=== PATIENT | female | born 1965 | race Caucasian/White ===

== ENCOUNTER 2017-01-11 09:22 | Outpatient (CLI) | payer OTHER ==
--- NOTE | 2017-01-11 14:17 | MRI Report ---
EXAM: LEFT HIP MRI WITHOUT CONTRAST EXAM DATE: 01/11/2017 11:00 AM. CLINICAL HISTORY: Left hip pain for 6 months. COMPARISON: None. TECHNIQUE: Multiplanar, multisequence T1-weighted and fluid-sensitive, small dtmne-il-odow sequences of the hip and large qezuu-fj-yhvz sequences of the pelvis without contrast. Other: None. FINDINGS: Bones: No fractures or subluxations. No marrow edema. Left Hip: No acetabular retroversion. Femoral head/neck offset is within normal limits. No effusion o r loose bodies. The articular cartilage is intact. The labrum is unremarkable on this nonarthrographi c study. The ligamentum teres is intact. Other Joints: The visualized lumbar spine, sacroiliac joints, symphysis pubis, and contralateral hip are unremarkable. Musculature: No edema or fatty atrophy. Minimal bilateral gluteus medius tendinosis is present. The visualized hamstring tendons are normal. The ischiofemoral space is normal. Pelvic Cavity: The visualized viscera are unremarkable. No lymphadenopathy. No free fluid in the pelv is. Other: The visualized sciatic nerves are unremarkable. No bursitis. The subcutaneous tissues are unre markable. IMPRESSION: Minimal bilateral gluteus medius tendinosis. [facility]CUL[facility] SECTION Referring Provider Line: [phone] SITE ID: [id number]
== END 2017-01-11 09:23 | disposition home or self-care (01) ==
LOC: DI 09:22
PROVIDERS: ATTEND Physician Assistant
DX: M67.952 Unspecified disorder of synovium and tendon, left thigh (principal); M67.951 Unspecified disorder of synovium and tendon, right thigh

== ENCOUNTER 2017-05-24 19:56 | Emergency (ER) | payer OTHER ==
--- NOTE | 2017-05-24 20:38 | XRAY Preliminary Report ---
Exam: XR FOOT 3 VIEW RT IMPRESSION: No evidence of fracture or dislocation. [facility] SITE ID: [id number]
--- NOTE | 2017-05-24 20:40 | XRAY Report ---
EXAM: RIGHT FOOT RADIOGRAPHY EXAM DATE: 05/24/2017 08:19 PM. CLINICAL HISTORY: Trauma. COMPARISON: None. TECHNIQUE: 3 views. FINDINGS: Bones: No fracture or focal bony lesion. There are calcaneal enthesophytes. Joints: No evidence of dislocation. Soft Tissues: No unexpected soft tissue findings. IMPRESSION: No evidence of fracture or dislocation. [facility] Referring Provider Line: [phone] SITE ID: [id number]
[2017-05-24] MEDS ORDERED: TRIAMCINOLONE 40 MG/ML VIAL IM STA (22:11)
[2017-05-24] MEDS ORDERED: BUPIVACAINE 0.5%-EPI 1:200000 PF 10 ML VIAL SUBQ STA (22:11)
[2017-05-24] MEDS ORDERED: diazePAM 5 MG TABLET PO STA (22:11)
[2017-05-24] MEDS ORDERED: KETOROLAC 60 MG/2 ML VIAL IM STA (22:11)
[2017-05-24] MEDS ORDERED: diazePAM 5 MG TABLET PO ONE (22:24)
[2017-05-24] MEDS ORDERED: TRIAMCINOLONE 40 MG/ML VIAL ONE (22:24)
[2017-05-24] MEDS ORDERED: KETOROLAC 60 MG/2 ML VIAL ONE (22:24)
[2017-05-24] MEDS ORDERED: BUPIVACAINE 0.5% PF 30 ML VIAL ONE (22:25)
--- NOTE | 2017-05-24 22:38 | ED Physician Documentation ---
PD HPI LOWER EXT INJURY - Stated complaint Stated Complaint: FOOT/BACK PX - Chief complaint Chief Complaint: Ext Problem - History obtained from History obtained from: Patient - History of Present Illness PD HPI LOW EXT INJURY LOCATION: Other (lower back hurting the past few days too. ) Type of injury: Twist (twisted foot as fell on curb. Not hurting too much at the time, but limping some. 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 : None HEENT: Other Psych: None Musculoskeletal: Chronic back pain, Other Derm: None - Past Surgical History Past Surgical History: Yes Ortho: Arthroscopic surgery /HELMET HAT PUNCHER: Tubal ligation HEENT: Tonsil/Adenoidectomy - Present Medications Home Medications: Ambulatory Orders Medication Instructions Recorded Confirmed Oxycodone HCl/Acetaminophen 1 mg PO TID PRN 01/19/14 05/24/17 [Percocet 10-325 mg Tablet] Aspirin [Aspir-Low] 81 mg PO DAILY 10/19/15 05/24/17 Gabapentin 300 mg PO DAILY 10/19/15 05/24/17 Metformin HCl 1,000 mg PO DAILY 10/19/15 05/24/17 Methocarbamol [Robaxin-750] 750 mg PO QID PRN #30 tablet 10/19/15 05/24/17 Lisinopril 10 mg PO 05/24/17 diazePAM [Diazepam] 5 mg PO TID PRN #20 tablet 05/24/17 - Allergies Allergies/Adverse Reactions: Allergies Allergy/AdvReac Type Severity Reaction Status Date / Time Penicillins Allergy Severe Rash Verified 05/24/17 20:03 adhesive AdvReac Rash Verified 05/24/17 20:03 - Social History Does the pt smoke?: Yes Smoking Status: Current every day smoker Does the pt drink ETOH?: No Does the pt have substance abuse?: No - Immunizations Immunizations are current?: Yes - POLST Patient has POLST: No PD ED PE NORMAL - Vitals Vital signs reviewed: Yes - General General: Alert and oriented X 3, Well developed/nourished, Other (pain in muscle left lower with ROM and palpation) - HEENT HEENT: Moist mucous membranes, Pharynx benign - Cardiac Cardiac: RRR, No murmur - Respiratory Respiratory: Clear bilaterally - Abdomen Abdomen: Soft, Non tender - Back Back: No CVA TTP, No spinal TTP, Other (tender left iliac creast area focally in muscle. No rash nor sores. ) - Derm Derm: Normal color, Warm and dry, No rash - Extremities Extremities: No tenderness to palpate, No edema, No calf tenderness / cord, Other (right ankle and top of switch tender to palpation laterally without deformity.) - Neuro Neuro: No motor deficit, No sensory deficit Results - Vitals Vitals: Oxygen O2 Source Room air PD MEDICAL DECISION MAKING - ED course Complexity details: reviewed results, considered differential (ankle sprain and likely has back pain now from irregular gait. Seems muscular in iliac crest area. Trigger point injection done at point of most tenderness. ), d/w patient Departure - Departure Disposition: 01 Home, Self Care Clinical Impression: Ankle sprain Qualifiers: Encounter type: initial encounter Involved ligament of ankle: other ligament Laterality: right Qualified Code(s): S93.491A - Sprain of other ligament of right ankle, initial encounter Low back strain Qualifiers: Encounter type: initial encounter Qualified Code(s): S39.012A - Strain of muscle, fascia and tendon of lower back, initial encounter Condition: Stable Record reviewed to determine appropriate education?: Yes Instructions: Lumbosacral Strain, ED Sprain Ankle W X Ray Follow-Up: LISANDRA JOHN MD [Primary Care Provider] - Prescriptions: diazePAM [Diazepam] 5 mg PO TID PRN #20 tablet PRN Reason: Spasms Comments: Use the walking cast boot to support the ankle and foot ligaments and muscles and reduce the pain and promote healing. You do not have to have it on when rested. Continue usual medications. He can use diazepam as a stronger muscle relaxant if needed for spasms. Hopefully there will be some improvement in the low back with the local injection as well. Continue usual pain medications. Follow-up with your primary care next week if not improved. The ankle may take even 2 or 3 weeks to fully heal up. Discharge Date/Time: 05/24/17 23:10
[2017-05-24 23:05] VITALS: BP 118/77
== END 2017-05-24 23:10 | disposition home or self-care (01) ==
LOC: ED 19:56
DX: S93.491A Sprain of other ligament of right ankle, initial encounter (principal); S39.012A Strain of muscle, fascia and tendon of lower back, initial encounter; W10.1XXA Fall (on)(from) sidewalk curb, initial encounter; X50.1XXA Overexertion from prolonged static or awkward postures, initial encounter; F17.200 Nicotine dependence, unspecified, uncomplicated
CPT/HCPCS: 20552; 73630; 96372; 99283; A9270

== ENCOUNTER 2017-07-02 11:06 | Emergency (ER) | payer OTHER ==
[2017-07-02 13:20] LABS: BASOPHILS % (AUTO) 0.9 %; HGB - HEMOGLOBIN 14.3 g/dL (12.0-16.0); LYMPHOCYTES % (AUTO) 23.8 %; MEAN CORPUSCULAR HEMOGLOBIN 29.6 pg (27.0-31.0); MEAN CORPUSCULAR HGB CONC 33.6 g/dL (32.0-36.0); MEAN CORPUSCULAR VOLUME 88.2 fL (81.0-99.0); MEAN PLATELET VOLUME 9.5 fL (7.9-10.8); MONOCYTES # (AUTO) 0.7 10^3/uL (0.0-1.0); MONOCYTES % (AUTO) 18.2 %; NEUTROPHILS # (AUTO) 2.3 10^3/uL (1.5-6.6); NEUTROPHILS % (AUTO) 57.1 %; PLT - PLATELET COUNT 132 10^3/uL (130-450); RED BLOOD COUNT 4.82 10^6/uL (4.20-5.40); RED CELL DISTRIBUTION WIDTH 14.8 % (12.0-15.0); WHITE BLOOD COUNT 4.1 x10^3/uL (4.8-10.8)
[2017-07-02 13:32] LABS: ALBUMIN 4.4 g/dL (3.2-5.5); ALBUMIN/GLOBULIN RATIO 1.4 (1.0-2.2); BILIRUBIN,TOTAL 0.3 mg/dL (0.2-1.0); CALCIUM 9.2 mg/dL (8.5-10.3); CREATININE 0.9 mg/dL (0.4-1.0); TOTAL PROTEIN 7.5 g/dL (6.7-8.2)
[2017-07-02] MEDS ORDERED: ONDANSETRON 4 MG/2 ML VIAL IVP STA (13:51)
[2017-07-02] MEDS ORDERED: SODIUM CHLORIDE 0.9% 1,000 ML IV ONE (13:51)
[2017-07-02] MEDS ORDERED: oxyCOD/ACETAMIN 5 MG/325 MG TABLET PO STA (13:51)
[2017-07-02] MEDS ORDERED: GABAPENTIN 100 MG CAPSULE PO STA (13:52)
[2017-07-02] MEDS ORDERED: METHOCARBAMOL 500 MG TABLET PO STA (13:52)
--- NOTE | 2017-07-02 13:52 | ED Physician Documentation ---
History of Present Illness - Stated complaint Stated Complaint: VOMITING,FEVER - Chief complaint Chief Complaint: Fever - History obtained from History obtained from: Patient, Family - History of Present Illness Timing: How many days ago (3) Pain level max: 7 Pain level now: 7 Quality: aching, dull Improved by: rest Worsened by: eating - Additonal information Additional information: Patient is a 52-year-old female who states she has been sick for the past 3 days. Coughing, body aches congestion. Also has had nausea vomiting diarrhea. Unable to keep her medications down at home. She is normally on Percocet, gabapentin and Robaxin. She is not having any abdominal pain. Has not taken anything for the vomiting. Review of Systems Ten Systems: 10 systems reviewed and negative Constitutional: reports: Fever, Chills, Myalgias Nose: reports: Rhinorrhea / runny nose, Congestion Throat: denies: Sore throat Respiratory: reports: Cough GI: reports: Nausea, Vomiting, Diarrhea. denies: Hematemesis, Bloody / black stool Skin: denies: Rash Musculoskeletal: denies: Neck pain, Back pain Neurologic: denies: Focal weakness, Numbness, Headache PD PAST MEDICAL HISTORY - Past Medical History Past Medical History: Yes Cardiovascular: None Respiratory: Sleep apnea, CPAP use Neuro: None Endocrine/Autoimmune: None GI: None ADMISSIONS NURSE: None : None HEENT: Other Psych: None Musculoskeletal: Chronic back pain, Other Derm: None - Past Surgical History Past Surgical History: Yes Ortho: Arthroscopic surgery /ADMISSIONS NURSE: Tubal ligation HEENT: Tonsil/Adenoidectomy - Present Medications Home Medications: Ambulatory Orders Medication Instructions Recorded Confirmed Oxycodone HCl/Acetaminophen 1 mg PO TID PRN 01/19/14 07/02/17 [Percocet 10-325 mg Tablet] Aspirin [Aspir-Low] 81 mg PO DAILY 10/19/15 07/02/17 Gabapentin 300 mg PO DAILY 10/19/15 07/02/17 Metformin HCl 1,000 mg PO DAILY 10/19/15 07/02/17 Methocarbamol [Robaxin-750] 750 mg PO QID PRN #30 tablet 10/19/15 07/02/17 Lisinopril 10 mg PO DAILY 05/24/17 07/02/17 diazePAM [Diazepam] 5 mg PO TID PRN #20 tablet 05/24/17 07/02/17 Ondansetron Odt [Zofran] 4 mg TL Q6H PRN #10 tablet 07/02/17 - Allergies Allergies/Adverse Reactions: Allergies Allergy/AdvReac Type Severity Reaction Status Date / Time Penicillins Allergy Severe Rash Verified 07/02/17 11:19 adhesive AdvReac Rash Verified 07/02/17 11:19 - Social History Does the pt smoke?: Yes Smoking Status: Current every day smoker Does the pt drink ETOH?: No Does the pt have substance abuse?: No - Immunizations Immunizations are current?: Yes - POLST Patient has POLST: No PD ED PE NORMAL - Vitals Vital signs reviewed: Yes - General General: Alert and oriented X 3, No acute distress, Well developed/nourished - HEENT HEENT: PERRL, Ears normal, Moist mucous membranes, Pharynx benign - Neck Neck: Supple, no meningeal sign - Cardiac Cardiac: RRR, Strong equal pulses - Respiratory Respiratory: No respiratory distress, Clear bilaterally - Abdomen Abdomen: Soft, Non tender, Non distended - Derm Derm: Warm and dry, No rash - Extremities Extremities: No edema, No calf tenderness / cord - Neuro Neuro: Alert and oriented X 3 - Psych Psych: Normal mood, Normal affect Results - Vitals Vitals: Vital Signs - 24 hr 07/02/17 07/02/17 07/02/17 11:16 12:59 16:18 Temperature 38.2 C H 38.5 C H 37.5 C Heart Rate 94 88 77 Respiratory 17 22 17 Rate Blood Pressure 110/68 110/60 108/76 O2 Saturation 97 96 95 Oxygen O2 Source Room air - Labs Labs: Laboratory Tests 07/02/17 07/02/17 13:12 13:12 WBC 4.1 L RBC 4.82 Hgb 14.3 Hct 42.5 MCV 88.2 MCH 29.6 MCHC 33.6 RDW 14.8 Plt Count 132 MPV 9.5 Neut # 2.3 Lymph # 1.0 L [place] # 0.7 Eos # 0.0 Baso # 0.0 Absolute Nucleated RBC 0.00 Nucleated RBC % 0.0 Sodium 136 Potassium 4.2 Chloride 101 Carbon Dioxide 21 Anion Gap 14.0 H BUN 16 Creatinine 0.9 Estimated GFR (MDRD) 65 L Glucose 117 H Calcium 9.2 Total Bilirubin 0.3 AST 56 H ALT 50 Alkaline Phosphatase 63 Total Protein 7.5 Albumin 4.4 Globulin 3.1 Albumin/Globulin Ratio 1.4 Lipase 20 L - Rads (name of study) cxr Radiology: Prelim report reviewed, EMP read contemporaneously, See rad report ( normal) PD MEDICAL DECISION MAKING - ED course Complexity details: reviewed results, re-evaluated patient, considered differential, d/w patient, d/w family ED course: Patient is well appearing, non-toxic. Feels better after IVF and medications here. Tolerating PO without diff. Abd is soft, nt and nd on serial exam. Will continue supportive care and follow up with her PCP. No sepsis. No pneumonia. Patient counseled regarding signs and symptoms for which I believe and urgent re -evaluation would be necessary. Patient with good understanding of and agreement to plan and is comfortable going home at this time This document was made in part using voice recognition software. While efforts are made to proofread this document, sound alike and grammatical errors may occur. Departure - Departure Disposition: 01 Home, Self Care Clinical Impression: Viral syndrome Vomiting Qualifiers: Vomiting type: unspecified Vomiting Intractability: non-intractable Nausea presence: with nausea Qualified Code(s): R11.2 - Nausea with vomiting, unspecified Fever Qualifiers: Fever type: unspecified Qualified Code(s): R50.9 - Fever, unspecified Condition: Good Instructions: ED Viral Syndrome, ED Nausea Vomiting Follow-Up: LISANDRA JOHN MD [Primary Care Provider] - Within 1 week Prescriptions: Ondansetron Odt [Zofran] 4 mg TL Q6H PRN #10 tablet PRN Reason: Nausea / Vomiting Comments: Return if you worsen. Drink plenty of fluids and rest. Discharge Date/Time: 07/02/17 16:19
[2017-07-02] MEDS: SODIUM CHLORIDE 0.9% 1,000 ML IV ONE ×2 (14:00→15:22)
--- NOTE | 2017-07-02 14:24 | XRAY Preliminary Report ---
Exam: XR CHEST 2 VIEW X-RAY IMPRESSION: Normal 2-view chest radiography. [facility] SITE ID: [id number]
--- NOTE | 2017-07-02 14:25 | XRAY Report ---
EXAM: CHEST RADIOGRAPHY EXAM DATE: 07/02/2017 02:01 PM. CLINICAL HISTORY: Fever. Cough. COMPARISON: 05/02/2007. TECHNIQUE: 2 views. FINDINGS: Lungs/Pleura: No focal opacities evident. No pleural effusion. No pneumothorax. Normal volumes. Mediastinum: Heart and mediastinal contours are unremarkable. Other: Interval cervical spine fusion. IMPRESSION: Normal 2-view chest radiography. [facility] Referring Provider Line: [phone] SITE ID: [id number]
[2017-07-02 16:19] VITALS: BP 108/76
== END 2017-07-02 16:19 | disposition home or self-care (01) ==
LOC: ED 11:06
DX: B34.9 Viral infection, unspecified (principal); R11.2 Nausea with vomiting, unspecified; R50.9 Fever, unspecified
CPT/HCPCS: 36415; 71046; 80053; 83690; 85025; 96361; 96374; 99283; A9270

== ENCOUNTER 2017-07-03 11:59 | Emergency (ER) | payer OTHER ==
[2017-07-03] MEDS ORDERED: SODIUM CHLORIDE 0.9% 1,000 ML IV ONE (13:28)
[2017-07-03] MEDS ORDERED: ONDANSETRON 4 MG/2 ML VIAL IVP STA (13:28)
[2017-07-03 13:49] LABS: BASOPHILS % (AUTO) 0.8 %; EOSINOPHILS % (AUTO) 0.1 %; HGB - HEMOGLOBIN 13.4 g/dL (12.0-16.0); LYMPHOCYTES # (AUTO) 1.5 10^3/uL (1.5-3.5); MEAN CORPUSCULAR HEMOGLOBIN 29.7 pg (27.0-31.0); MEAN CORPUSCULAR HGB CONC 33.8 g/dL (32.0-36.0); MEAN CORPUSCULAR VOLUME 87.9 fL (81.0-99.0); MONOCYTES # (AUTO) 0.5 10^3/uL (0.0-1.0); MONOCYTES % (AUTO) 12.7 %; NEUTROPHILS % (AUTO) 49.4 %; PLT - PLATELET COUNT 111 10^3/uL (130-450); RED BLOOD COUNT 4.49 10^6/uL (4.20-5.40); RED CELL DISTRIBUTION WIDTH 14.9 % (12.0-15.0); WHITE BLOOD COUNT 4.1 x10^3/uL (4.8-10.8)
[2017-07-03] MEDS ORDERED: diazePAM INJ 5 MG/ML SYRINGE IVP STA (13:49)
[2017-07-03] MEDS ORDERED: LIDOCAINE PATCH 5% TOP STA (13:49)
[2017-07-03] MEDS ORDERED: KETOROLAC 30 MG/ML VIAL IVP STA (13:49)
[2017-07-03 13:57] LABS: CALCIUM 8.5 mg/dL (8.5-10.3); CREATININE 0.8 mg/dL (0.4-1.0)
--- NOTE | 2017-07-03 14:03 | ED Physician Documentation ---
History of Present Illness - Stated complaint Stated Complaint: VOMITING - Chief complaint Chief Complaint: Abd Pain - Additonal information Additional information: 52 female hx chronic neck pain s/pm surgery usually takes percocet and a mm relaxant now sick with fever PAGE myalgias NV and cough seen yesterday for same, CXR neg, dc with rx with zofran due to not taking meds her neck pain is worse than nl Review of Systems Constitutional: reports: Fever, Chills, Myalgias Respiratory: reports: Cough GI: reports: Nausea, Vomiting, Diarrhea. 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: Tubal ligation HEENT: Tonsil/Adenoidectomy - Present Medications Home Medications: Ambulatory Orders Medication Instructions Recorded Confirmed Oxycodone HCl/Acetaminophen 1 mg PO TID PRN 01/19/14 07/03/17 [Percocet 10-325 mg Tablet] Aspirin [Aspir-Low] 81 mg PO DAILY 10/19/15 07/03/17 Gabapentin 300 mg PO DAILY 10/19/15 07/03/17 Metformin HCl 1,000 mg PO DAILY 10/19/15 07/03/17 Methocarbamol [Robaxin-750] 750 mg PO QID PRN #30 tablet 10/19/15 07/03/17 Lisinopril 10 mg PO DAILY 05/24/17 07/03/17 diazePAM [Diazepam] 5 mg PO TID PRN #20 tablet 05/24/17 07/03/17 Ondansetron Odt [Zofran] 4 mg TL Q6H PRN #10 tablet 07/02/17 07/03/17 Promethazine [Phenergan] 25 mg PO Q6H PRN #10 tablet 07/03/17 diazePAM [Valium] 5 mg PO Q8H PRN #10 tablet 07/03/17 - Allergies Allergies/Adverse Reactions: Allergies Allergy/AdvReac Type Severity Reaction Status Date / Time Penicillins Allergy Severe Rash Verified 07/02/17 11:19 adhesive AdvReac Rash Verified 07/02/17 11:19 - Social History Does the pt smoke?: Yes Smoking Status: Current every day smoker Does the pt drink ETOH?: No Does the pt have substance abuse?: No - Immunizations Immunizations are current?: Yes - POLST Patient has POLST: No PD ED PE NORMAL - Vitals Vital signs reviewed: Yes - General General: Alert and oriented X 3 - HEENT HEENT: PERRL - Neck Neck: No bony TTP (or focal rendess or swelling) - Cardiac Cardiac: RRR - Respiratory Respiratory: No respiratory distress, Clear bilaterally - Abdomen Abdomen: Soft, Non tender - Derm Derm: Normal color - Neuro Neuro: Alert and oriented X 3, music professor 2-12 intact, No motor deficit Results - Vitals Vitals: Vital Signs - 24 hr 07/03/17 07/03/17 07/03/17 12:18 15:08 15:12 Temperature 38.4 C H Heart Rate 86 71 76 Respiratory 22 18 20 Rate Blood Pressure 122/79 104/56 L O2 Saturation 96 98 92 Oxygen O2 Source Room air - Labs Labs: Laboratory Tests 07/03/17 07/03/17 07/03/17 13:25 13:40 13:40 WBC 4.1 L RBC 4.49 Hgb 13.4 Hct 39.5 MCV 87.9 MCH 29.7 MCHC 33.8 RDW 14.9 Plt Count 111 L MPV 9.0 Neut # 2.0 Lymph # 1.5 [place] # 0.5 Eos # 0.0 Baso # 0.0 Absolute Nucleated RBC 0.00 Nucleated RBC % 0.0 Sodium 134 L Potassium 4.3 Chloride 102 Carbon Dioxide 25 Anion Gap 7.0 BUN 15 Creatinine 0.8 Estimated GFR (MDRD) 75 L Glucose 96 Calcium 8.5 Urine Color Urine Clarity Urine pH Ur Specific [place] Urine Protein Urine Glucose (UA) Urine Ketones Urine Occult Blood Urine Nitrite Urine Bilirubin Urine Urobilinogen Ur Leukocyte Esterase Ur Microscopic Review Urine Culture Comments Influenza A (Rapid) Negative Influenza B (Rapid) POSITIVE H Influenza Types A,B Ag + H 07/03/17 14:15 WBC RBC Hgb Hct MCV MCH MCHC RDW Plt Count MPV Neut # Lymph # [place] # Eos # Baso # Absolute Nucleated RBC Nucleated RBC % Sodium Potassium Chloride Carbon Dioxide Anion Gap BUN Creatinine Estimated GFR (MDRD) Glucose Calcium Urine Color YELLOW Urine Clarity CLEAR Urine pH 5.5 Ur Specific [place] 1.025 Urine Protein NEGATIVE Urine Glucose (UA) NEGATIVE Urine Ketones NEGATIVE Urine Occult Blood TRACE-LYSE Urine Nitrite NEGATIVE Urine Bilirubin NEGATIVE Urine Urobilinogen 0.2 (NORMAL) Ur Leukocyte Esterase NEGATIVE Ur Microscopic Review NOT INDICATED Urine Culture Comments NOT INDICATED Influenza A (Rapid) Influenza B (Rapid) Influenza Types A,B Ag PD MEDICAL DECISION MAKING - ED course ED course: influenza + sick for 5 days so too late for tamiflu to help better after meds in ER zofran wasnt working at home, will try phenergan instead and motrin for fever body aches and valium for inc above baseline but chronic neck spasm Departure - Departure Disposition: 01 Home, Self Care Clinical Impression: Influenza B Condition: Good Instructions: ED Flu Prescriptions: diazePAM [Valium] 5 mg PO Q8H PRN #10 tablet PRN Reason: neck spasm Promethazine [Phenergan] 25 mg PO Q6H PRN #10 tablet PRN Reason: vomiting Comments: Rest and drink plenty of fluids Try phenergan instead of zofran Try valium instead of your usual muscle relaxant You can take motrin for fever and mild pain And with the phenergan you should be able to take your percocet as well Forms: Activity restrictions
[2017-07-03] MEDS ORDERED: diazePAM 5 MG TABLET PO STA (14:22)
[2017-07-03 14:29] LABS: BILIRUBIN,URINE NEGATIVE (NEGATIVE); GLUCOSE, URINE (UA) NEGATIVE (NEGATIVE); KETONES,URINE (UA) NEGATIVE (NEGATIVE); LEUKOCYTE ESTERASE, URINE NEGATIVE (NEGATIVE); NITRITE,URINE NEGATIVE (NEGATIVE); OCCULT BLOOD,URINE TRACE-LYSE (NEGATIVE); PH,URINE 5.5 PH (5.0-7.5); PROTEIN,URINE NEGATIVE (NEGATIVE); UROBILINOGEN,URINE 0.2 (NORMAL) E.U./dL (NORMAL)
[2017-07-03 14:44] LABS: CLARITY,URINE CLEAR (CLEAR)
[2017-07-03 17:11] VITALS: BP 128/83
== END 2017-07-03 17:09 | disposition home or self-care (01) ==
LOC: ED 11:59
DX: J10.1 Influenza due to other identified influenza virus with other respiratory manifestations (principal); M62.838 Other muscle spasm; F17.200 Nicotine dependence, unspecified, uncomplicated; Z79.82 Long term (current) use of aspirin
CPT/HCPCS: 36415; 80048; 81003; 85025; 87275; 87276; 96361; 96374; 96375; 99283; A9270; 80053; 81001; 83690; 87086

== ENCOUNTER 2018-05-30 12:49 | Outpatient (CLI) | payer MEDICARE, OTHER ==
--- NOTE | 2018-05-30 15:20 | XRAY Report ---
Reason: LOW BACK PAIN,NON SPECIFIC,LEFT FOOT PAIN Procedure Date: 05/30/2018 Accession Number: [id number] / [id number] Procedure: XR - Foot 3 View LT CPT Code: FULL RESULT: EXAM: LEFT FOOT RADIOGRAPHY EXAM DATE: 05/30/2018 01:08 PM. CLINICAL HISTORY: Low back pain, nonspecific, left foot pain after twisting the left foot approximately 2 months ago. COMPARISON: FOOT 3 VIEW RT 05/24/2017 8:06 PM. TECHNIQUE: 3 views. FINDINGS: Bones: Sharp inferior calcaneal and posterior calcaneal enthesopathy. No fractures or bone lesions. Joints: Normal. No subluxations. Soft Tissues: Normal. No soft tissue swelling. IMPRESSION: Calcaneal enthesopathy may account for the patient's heel pain and sensation of "shock" when walking. [facility]
--- NOTE | 2018-05-31 10:59 | MRI Report ---
Reason: LOW BACK PAIN,NON SPECIFIC,LEFT FOOT PAIN Procedure Date: 05/30/2018 Accession Number: [id number] / [id number] Procedure: MRI - Lumbar Spine W/O CPT Code: FULL RESULT: EXAM: MRI LUMBAR SPINE WITHOUT CONTRAST EXAM DATE: 05/30/2018 01:58 PM. CLINICAL HISTORY: Low back pain, nonspecific, left foot pain. COMPARISON: None. TECHNIQUE: Multiplanar, multisequence T1-weighted and fluid-sensitive sequences of the lumbar spine from T12 to S1 without contrast. Other: None. FINDINGS: Spinal Canal: The conus terminates at L1-L2. The conus medullaris and cauda equina are unremarkable. Alignment: No scoliosis or spondylolisthesis. Bone Marrow: Five [id number]-[id number] lumbar vertebral bodies are assumed. There is Modic type I change at the L4-L5 endplates. Disk Levels/Facets: T12-L1: There is a small posterior disk osteophyte complex causing minimal canal narrowing. The foramina are patent. L1-L2: Unremarkable. L2-L3: There is a broad-based posterior disk bulge with minimal canal narrowing. There is minimal foraminal narrowing. L3-L4: There is a broad-based posterior disk bulge with mild facet joint osteoarthritis causing mild canal narrowing. There is mild right and moderate left foraminal narrowing. L4-L5: There are circumferential osteophytes with moderate facet joint osteoarthritis causing mild canal narrowing. There is moderate bilateral foraminal narrowing worse on the left. A facet joint osteophyte contacts the left L4 nerve root within the neural foramen. L5-S1: There is a broad-based posterior disk bulge which extends into both neural foramina. There is moderate facet joint osteoarthritis. The findings cause mild canal narrowing. There is moderate bilateral foraminal narrowing. Both nerve roots are superiorly displaced by disk and osteophytes. Musculature: Normal. No edema or fatty atrophy. Other: The partially visualized retroperitoneum is unremarkable. IMPRESSION: 1. Mild to moderate degenerative change worst at L3-L4 to L5-S1. 2. L3-L4: Mild right and moderate left foraminal narrowing. Mild canal narrowing. 3. L4-L5: Mild canal narrowing with moderate bilateral foraminal narrowing. A facet joint osteophyte contacts the left L4 nerve root. 4. Mild canal narrowing at L5-S1. Moderate bilateral foraminal narrowing. Both nerve roots are superiorly displaced by disk and osteophytes. Comment: The following findings are so common in adults without low back pain that while we report their presence, they must be interpreted with caution and in the context of the clinical situation. (Reference Juan et al, Spine 2001) Prevalence of findings in patients without low back pain: Disk degeneration (any evidence): 92% Disk desiccation/T2 signal loss: 83% Disk height loss: 56% Disk bulge: 64% Disk protrusion: 32% Annular tear/high intensity zone: 38% [facility]
== END 2018-05-30 12:50 | disposition home or self-care (01) ==
LOC: DI 12:49
PROVIDERS: ATTEND Anesthesiology Pain Medicine
DX: M77.32 Calcaneal spur, left foot (principal); M47.9 Spondylosis, unspecified; M51.36 Other intervertebral disc degeneration, lumbar region; M51.37 Other intervertebral disc degeneration, lumbosacral region; M48.061 Spinal stenosis, lumbar region without neurogenic claudication; M48.07 Spinal stenosis, lumbosacral region
CPT/HCPCS: 72148

== ENCOUNTER 2019-07-16 22:03 | Emergency (ER) | payer MEDICARE, OTHER ==
[2019-07-16 22:20] LABS: GLUCOSE, URINE (UA) NEGATIVE (NEGATIVE); KETONES,URINE (UA) NEGATIVE (NEGATIVE); LEUKOCYTE ESTERASE, URINE MODERATE (NEGATIVE); NITRITE,URINE POSITIVE (NEGATIVE); OCCULT BLOOD,URINE LARGE (NEGATIVE); PH,URINE 5.5 PH (5.0-7.5); PROTEIN,URINE 100 mg/dL (NEGATIVE); UROBILINOGEN,URINE 0.2 (NORMAL) E.U./dL (NORMAL)
[2019-07-16 22:33] LABS: BILIRUBIN,URINE NEGATIVE (NEGATIVE); CLARITY,URINE CLOUDY (CLEAR); ICTOTEST,URINE NEGATIVE
[2019-07-16 22:34] LABS: BACTERIA,URINE Many /HPF (None Seen); RBC,URINE TNTC /HPF (0-5); SQUAMOUS EPITHELIAL CELL,UR RARE Squamous (<= Few); WBC CLUMPS,URINE PRESENT
[2019-07-17 00:18] VITALS: BP 141/98
[2019-07-17] MEDS ORDERED: CEPHALEXIN 250 MG Prepack 8 CAP BOTTLE PO STA (02:16)
--- NOTE | 2019-07-17 02:16 | ED Physician Documentation ---
History of Present Illness - Stated complaint Stated Complaint: F - Chief complaint Chief Complaint: Abd Pain - History obtained from History obtained from: Patient (Patient is a very pleasant 54-year-old female who presents with urinary urgency and frequency without hematuria or flank pain she reports that she has a urinary tract infection and would like to be treated with antibiotics. She reports she is taking Keflex previously without any prior adverse reactions.) Review of Systems Constitutional: reports: Reviewed and negative Eyes: reports: Reviewed and negative Ears: reports: Reviewed and negative Nose: reports: Reviewed and negative Throat: reports: Reviewed and negative Cardiac: reports: Reviewed and negative Respiratory: reports: Reviewed and negative GI: reports: Reviewed and negative : reports: Dysuria, Frequency, Reviewed and negative Skin: reports: Reviewed and negative Musculoskeletal: reports: Reviewed and negative Neurologic: reports: Reviewed and negative Psychiatric: reports: Reviewed and negative Endocrine: reports: Reviewed and negative Immunocompromised: reports: Reviewed and negative PD PAST MEDICAL HISTORY - Past Medical History Past Medical History: Yes Cardiovascular: None Respiratory: Sleep apnea, CPAP use Endocrine/Autoimmune: None GI: None 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 : None HEENT: Other Psych: None Musculoskeletal: Chronic back pain, Other Derm: None - Past Surgical History Past Surgical History: Yes Ortho: Arthroscopic surgery /FOOT PRESS OPERATOR: Tubal ligation HEENT: Tonsil/Adenoidectomy - Present Medications Home Medications: Ambulatory Orders Medication Instructions Recorded Confirmed Oxycodone HCl/Acetaminophen 1 mg PO TID PRN 01/19/14 07/03/17 [Percocet 10-325 mg Tablet] Aspirin [Aspir-Low] 81 mg PO DAILY 10/19/15 07/03/17 Gabapentin 300 mg PO DAILY 10/19/15 07/03/17 Metformin HCl 1,000 mg PO DAILY 10/19/15 07/03/17 Methocarbamol [Robaxin-750] 750 mg PO QID PRN #30 tablet 10/19/15 07/03/17 diazePAM [Diazepam] 5 mg PO TID PRN #20 tablet 05/24/17 07/03/17 lisinopriL [Lisinopril] 10 mg PO DAILY 05/24/17 07/03/17 Ondansetron Odt [Zofran] 4 mg TL Q6H PRN #10 tablet 07/02/17 07/03/17 Promethazine [Phenergan] 25 mg PO Q6H PRN #10 tablet 07/03/17 diazePAM [Valium] 5 mg PO Q8H PRN #10 tablet 07/03/17 Cephalexin [Keflex] 500 mg PO BID 5 Days #10 capsule 07/17/19 - Allergies Allergies/Adverse Reactions: Allergies Allergy/AdvReac Type Severity Reaction Status Date / Time Penicillins Allergy Severe Rash Verified 07/16/19 22:12 adhesive AdvReac Rash Verified 07/16/19 22:12 - Social History Does the pt smoke?: Yes Smoking Status: Current every day smoker Does the pt drink ETOH?: No Does the pt have substance abuse?: No - Immunizations Immunizations are current?: Yes - POLST Patient has POLST: No PD ED PE NORMAL - Vitals Vital signs reviewed: Yes - General General: Alert and oriented X 3, No acute distress - HEENT HEENT: PERRL - Neck Neck: Supple, no meningeal sign - Cardiac Cardiac: RRR, No murmur - Respiratory Respiratory: Clear bilaterally - Abdomen Abdomen: Normal bowel sounds, Soft, Non tender, Non distended - Female Female : Pt declined, Other (There is suprapubic tenderness palpation there is no CVA tenderness to palpation bilaterally.) - Derm Derm: Warm and dry - Extremities Extremities: No deformity - Neuro Neuro: Alert and oriented X 3 - Psych Psych: Normal mood, Normal affect Results - Vitals Vitals: Vital Signs - 24 hr 07/16/19 07/17/19 22:07 00:17 Temperature 36.6 C 37.0 C Heart Rate 98 97 Respiratory 16 18 Rate Blood Pressure 139/87 H 141/98 H O2 Saturation 100 97 Oxygen O2 Source Room air - Labs Labs: Laboratory Tests 07/16/19 22:12 Urine Color BROWN Urine Clarity CLOUDY Urine pH 5.5 Ur Specific [place] >=1.030 H Urine Protein 100 H Urine Glucose (UA) NEGATIVE Urine Ketones NEGATIVE Urine Occult Blood LARGE H Urine Nitrite POSITIVE H Urine Bilirubin NEGATIVE Urine Urobilinogen 0.2 (NORMAL) Ur Leukocyte Esterase MODERATE H Urine RBC TNTC H Urine WBC >25 H Urine WBC Clumps PRESENT Ur Squamous Epith Cells RARE Squamous Urine Bacteria Many H Ur Microscopic Review INDICATED Urine Culture Comments INDICATED Departure - Departure Disposition: Home, Self Care Clinical Impression: Urinary tract infection Qualifiers: Urinary tract infection type: site unspecified Hematuria presence: without hematuria Qualified Code(s): N39.0 - Urinary tract infection, site not specified Instructions: ED UTI Cystitis Female Follow-Up: GIL COTTER MD [Primary Care Provider] - Tomorrow Prescriptions: Cephalexin [Keflex] 500 mg PO BID 5 Days #10 capsule Discharge Date/Time: 07/17/19 02:29
[2019-07-17] MEDS ORDERED: cephALEXin 250 MG CAPSULE PO STA (02:22)
== END 2019-07-17 02:29 | disposition home or self-care (01) ==
LOC: ED 22:03
DX: N39.0 Urinary tract infection, site not specified (principal); Z79.82 Long term (current) use of aspirin; F17.200 Nicotine dependence, unspecified, uncomplicated
CPT/HCPCS: 81001; 87077; 87086; 87181; 99283; A9270; 81003

== ENCOUNTER 2020-01-05 08:47 | Outpatient (CLI) | payer MEDICARE, OTHER ==
--- NOTE | 2020-01-06 15:51 | Ultrasound Report ---
LIMITED ULTRASOUND OF LEFT BREAST: 01/05/2020 CLINICAL: Palpable left breast lump. Comparison is made to exams dated: 01/05/2020 ultrasound, 01/05/2020 mammogram - [facility], and 07/05/2010 mammogram - [facility]. Color flow and real-time ultrasound of the left breast 10-2 o'clock region were performed on the are as of interest. There are multiple various size oval cysts in the left breast superior medial quadrant anterior depth with the largest measuring up to 1.1 cm x 1.1 cm x 1.1 cm. These oval cysts display well-defined valerio undaries and posterior acoustic shadowing. These correlate as palpated and with mammography findings . There are related rim calcifications. Color flow imaging demonstrates that there is no vascularit y present. No suspicious masses are otherwise identified in the area of palpable abnormality. IMPRESSION: BENIGN There is no sonographic evidence of malignancy. The multiple various size peripherally calcified oval cysts in the left breast corresponding to the p alpable findings are consistent with oil cysts and are benign. A 1 year screening mammogram is recommended. This exam was interpreted at Station ID: [id number]. Electronically Signed By: Estievn Olvera M.D. ddp/:01/05/2020 11:42:22 Ultrasound BI-RADS: 2 Benign BI-RADS CATEGORY: (2) - 2 RECOMMENDATION: (ANNUAL) - Recommend routine annual screening mammography. [id number] 1 year screening LATERALITY: (B)
--- NOTE | 2020-01-06 15:51 | Mammography Report ---
BILATERAL DIGITAL DIAGNOSTIC MAMMOGRAM 3D/2D: 01/05/2020 CLINICAL: Palpable left breast lumps. Comparison is made to exam dated: 07/05/2010 mammogram - [facility]. There are scattered fibroglandular jamal ments in both breasts. There are multiple new various size oval high density oil cysts with circumscribed margins and rim ca lcifications in the superior left breast anterior depth. These correlate as palpated. No other significant masses, calcifications, or other findings are seen in either breast. IMPRESSION: INCOMPLETE: NEEDS ADDITIONAL IMAGING EVALUATION The multiple new various size oval high density oil cysts in the left breast are indeterminate. An u ltrasound is recommended to evaluate the palpable abnormality and will be performed immediately follo wing this study. This exam was interpreted at Station ID: [id number]. NOTE: For mammograms, a report in lay terms will be sent to the patient. Approximately 15% of breast malignancies will not be visualized mammographically. In the management of a palpable breast mass, a negative mammogram must not discourage biopsy of a clinically suspicious lesion. Electronically Signed By: Estiven Olvera M.D. ddp/:01/05/2020 10:08:50 ACR BI-RADS Category 0: Incomplete 3340F PARENCHYMAL PATTERN: (A) - The breast(s) demonstrate(s) scattered fibroglandular densities. BI-RADS CATEGORY: (0) - 0 Ultrasound [id number] Immediate follow-up LATERALITY: (B)
== END 2020-01-05 08:48 | disposition home or self-care (01) ==
LOC: DI 08:47
PROVIDERS: ATTEND Internal Medicine
DX: N60.12 Diffuse cystic mastopathy of left breast (principal)
CPT/HCPCS: 76642; 77066